=== PATIENT | male | born 1980 | race Caucasian/White ===

== ENCOUNTER 2016-08-28 09:38 | Emergency (ER) | payer OTHER ==
[2016-08-28 09:43] VITALS: BP 128/84; PULSE 83; TEMP 97.7; BMI 30.7
--- NOTE | 2016-08-28 10:32 | PDOC ---
History of Present Illness - General Chief Complaint: Back Pain Stated Complaint: BACK PAIN Time Seen by Provider: 08/28/16 09:50 History Source: Patient, Parent(s) Exam Limitations: No Limitations - History of Present Illness Initial Comments: 08/28/16 10:44 Patient states had onset of pain to his waistline and low back yesterday which is progressively gotten worse. Has no known trauma, recent injury, any exercise changes. Is currently unemployed and has not performed any heavy lifting. Denies fever, denies nausea vomiting diarrhea or constipation. States had back pain episode approximate 4 months ago but that was related to pancreatitis and this pain is not similar to that pain. Denies any changes with urine, no bleeding or history of kidney stone. Has used ibuprofen at home with minimal resolved. 08/28/16 10:45 Occurred: reports: yesterday Severity: reports: moderate Pain Location: reports: back Method of Injury: Yes: unknown Modifying Factors: improves with: None Loss of Consciousness: no loss of consciousness Associated Symptoms (Fall): denies symptoms Past History - Travel Traveled outside of the country in the last 30 days: No Close contact w/someone who was outside of country & ill: No - Past Medical History Allergies/Adverse Reactions: Allergies Allergy/AdvReac Type Severity Reaction Status Date / Time Penicillins Allergy Unknown Itching Verified 08/28/16 09:40 Home Medications: Ambulatory Orders Cyclobenzaprine HCl [Flexeril 10 mg] 10 mg PO BID PRN #14 tablet 08/28/16 Naproxen [Naprosyn -] 500 mg PO TID #25 tablet 08/28/16 Anemia: No Asthma: No Cancer: No Cardiac Disorders: No CVA: No COPD: No CHF: No Dementia: No Diabetes: No GI Disorders: No Disorders: No HTN: No Hypercholesterolemia: No Liver Disease: No Suicide Attempt (Hx): No Seizures: No Thyroid Disease: No - Surgical History Abdominal Surgery: No Appendectomy: No Cardiac Surgery: No Cholecystectomy: Yes Lung Surgery: No Neurologic Surgery: No Orthopedic Surgery: Yes (RIGHT SHOULDER SX 2010,) - Psycho/Social/Smoking Cessation Hx Anxiety: No Suicidal Ideation: No Smoking History: Never smoked Have you smoked in the past 12 months: No Information on smoking cessation initiated: No Hx Alcohol Use: No Drug/Substance Use Hx: No Substance Use Type: None Hx Substance Use Treatment: No Review of Systems - Review of Systems Able to Perform ROS?: Yes Is the patient limited Pashto proficient: Yes Constitutional: Yes: Symptoms Reported, See HPI, Malaise HEENTM: Yes: See HPI. No: Symptoms Reported Respiratory: Yes: See HPI. No: Symptoms reported ABD/GI: No: Symptoms Reported Musculoskeletal: Yes: Symptoms Reported, See HPI, Back Pain, Muscle Pain Integumentary: Yes: Symptoms Reported, See HPI Neurological: Yes: See HPI. No: Symptoms reported, Headache, Paresthesia All Other Systems: Reviewed and Negative *Physical Exam - Vital Signs Last Vital Signs Temp Pulse Resp BP Pulse Ox 97.7 F 83 18 128/84 100 08/28/16 09:41 08/28/16 09:41 08/28/16 09:41 08/28/16 09:41 08/28/16 09:41 - Physical Exam General Appearance: Yes: Nourished, Appropriately Dressed, Apparent Distress HEENT: positive: TONY, Normal ENT Inspection, TMs Normal, Pharynx Normal Neck: positive: Supple. negative: Tender, Lymphadenopathy (R), Lymphadenopathy (L) Respiratory/Chest: positive: Lungs Clear, Normal Breath Sounds Musculoskeletal: positive: Normal Inspection, Muscle Spasm (palpable spasm and tenderness along the paravertebral spinous muscles at waist and lumbar spine. No true vertebral tenderness crepitus or step-offs. Range of motion is limited secondary to pain with flexion at waist, no radiating pain.). 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 Encouraged follow-up with orthopedist for further evaluation and possible therapy *DC/Admit/Observation/Transfer Diagnosis at time of Disposition: Low back strain Qualifiers: Encounter type: initial encounter Qualified Code(s): S39.012A - Strain of muscle, fascia and tendon of lower back, initial encounter - Discharge Dispostion Disposition: HOME Condition at time of disposition: Stable Admit: No - Referrals Referrals: Rebecca Morin MD [Primary Care Provider] - Venkata Hernandez MD [Staff Physician] - - Patient Instructions Printed Discharge Instructions: DI for Back Strain or Sprain Additional Instructions: Rest, no heavy lifting or exercise until pain is resolved Hot soaks to neck and low back as often as possible/hot showers or Jacuzzis No massage or therapy until spasm is gone Continue i Naprosyn 500 mg every 8 hours for the next 3 days then as needed for pain and swelling Cyclobenzaprine 1-10mg every 8 hours as needed for spasm If not significant improvement within 24 hours with medication and rest regime, followup with private physician for change in medications and /or therapy.
[2016-08-28] MEDS ORDERED: CYCLOBENZAPRINE HCL 10 MG TABLET (FP) PO ONE (10:43)
[2016-08-28] MEDS ORDERED: KETOROLAC TROMETHAMINE 60 MG/2 ML VIAL IM ONE (10:43)
[2016-08-28] MEDS ORDERED: CYCLOBENZAPRINE HCL 10 MG TABLET (FP) ONE (10:45)
[2016-08-28] MEDS ORDERED: KETOROLAC TROMETHAMINE 60 MG/2 ML VIAL ONE (10:45)
[2016-08-28] MEDS ORDERED: OXYCODONE/APAP 5/325MG COMBO TABLET ONE (11:16)
[2016-08-28 11:31] LABS: URINE APPEARANCE CLEAR; URINE BILIRUBIN NEGATIVE (NEGATIVE); URINE COLOR STRAW; URINE GLUCOSE (UA) NEGATIVE (NEGATIVE); URINE KETONE NEGATIVE (NEGATIVE); URINE LEUK ESTERASE NEGATIVE (NEGATIVE); URINE NITRITE NEGATIVE (NEGATIVE); URINE PROTEIN NEGATIVE (NEGATIVE); URINE UROBILINOGEN NEGATIVE E.U./dl (0.2-1.0)
[2016-08-28 11:45] LABS: URINE BLOOD 1+ (NEGATIVE)
[2016-08-28 12:15] LABS: URINE MUCUS RARE; URINE RBC <1 /hpf (0-3)
== END 2016-08-28 11:49 | disposition home or self-care (01) ==
LOC: JERFT 09:38
PROC: 3E0333Z Introduction of Anti-inflammatory into Peripheral Vein, Percutaneous Approach (ICD-10-PCS; principal; 2016-08-28)
DX: S39.012A Strain of muscle, fascia and tendon of lower back, initial encounter (principal); M62.830 Muscle spasm of back
CPT/HCPCS: 81003; 81015; 96372; 99281-25

== ENCOUNTER 2016-10-09 16:20 | Emergency (ER) | payer OTHER ==
[2016-10-09 16:26] VITALS: BMI 29.9
--- NOTE | 2016-10-09 17:21 | PDOC ---
History of Present Illness - History of Present Illness Initial Comments: 10/09/16 18:15 Patient is a 36 year old male with no significant medical hx who is presenting to the ED with bruising of unknown origin from this morning. The patient states he woke up this morning with scattered bruising to his left thigh, right thigh, and left buttock. He does not know what caused the bruising and decided to come to the ED for further evaluation. The patient denies any recent heavy lifting, physical altercations, work related injuries, trauma, or falls. Patient is not on any chronic medications. Patient denies any other symptoms such as abdominal pain, nausea, vomiting, high fevers, difficulty swallowing, shortness of breath, or chest pain. Allergies: Penicillin PMD: Rebecca Morin MD Surgical Hx: cholecystectomy, shoulder sx <Yanira Dias - Last Filed: 10/09/16 18:15> <Ilda Rudolph - Last Filed: 10/10/16 02:46> - General Chief Complaint: Pain Stated Complaint: bruising Time Seen by Provider: 10/09/16 17:18 Past History <Yanira Dias - Last Filed: 10/09/16 18:15> - Past Medical History Anemia: No Asthma: No Cancer: No Cardiac Disorders: No CVA: No COPD: No CHF: No Dementia: No Diabetes: No GI Disorders: No Disorders: No HTN: No Hypercholesterolemia: No Liver Disease: No Suicide Attempt (Hx): No Seizures: No Thyroid Disease: No - Surgical History Abdominal Surgery: No Appendectomy: No Cardiac Surgery: No Cholecystectomy: Yes Lung Surgery: No Neurologic Surgery: No Orthopedic Surgery: Yes (RIGHT SHOULDER SX 2010,) - Psycho/Social/Smoking Cessation Hx Anxiety: No Suicidal Ideation: No Smoking History: Never smoked Have you smoked in the past 12 months: No Information on smoking cessation initiated: No Hx Alcohol Use: No Drug/Substance Use Hx: No Substance Use Type: None Hx Substance Use Treatment: No <Ilda Rudolph - Last Filed: 10/10/16 02:46> - Past Medical History Allergies/Adverse Reactions: Allergies Allergy/AdvReac Type Severity Reaction Status Date / Time Penicillins Allergy Unknown Itching Verified 10/09/16 16:24 Home Medications: Ambulatory Orders NK [No Known Home Medication] 10/09/16 Review of Systems - Review of Systems Comments:: 10/09/16 18:15 CONSTITUTIONAL: Absent: fever, chills, diaphoresis, generalized weakness, malaise, loss of appetite HEENT: Absent: rhinorrhea, nasal congestion, throat pain, throat swelling, difficulty swallowing, mouth swelling, ear pain, eye pain, visual changes CARDIOVASCULAR: Absent: chest pain, syncope, palpitations, irregular heart rate, lightheadedness , peripheral edema RESPIRATORY: Absent: cough, shortness of breath, dyspnea with exertion, orthopnea, wheezing, stridor, hemoptysis GASTROINTESTINAL: Absent: abdominal pain, abdominal distension, nausea, vomiting, diarrhea, constipation, melena, hematochezia GENITOURINARY: Absent: dysuria, frequency, urgency, hesitancy, hematuria, flank pain, genital pain MUSCULOSKELETAL: Absent: myalgia, arthralgia, joint swelling SKIN: Present: bruising Absent: rash, itching, pallor HEMATOLOGIC/IMMUNOLOGIC: Absent: easy bleeding, easy bruising, lymphadenopathy, frequent infections ENDOCRINE: Absent: unexplained weight gain, unexplained weight loss, heat intolerance, cold intolerance NEUROLOGIC: Absent: headache, focal weakness or paresthesia, dizziness, unsteady gait, seizure, mental status changes, bladder or bowel incontinence. PSYCHIATRIC: Absent: anxiety, depression, suicidal or homicidal ideation, hallucinations <Yanira Dias - Last Filed: 10/09/16 18:15> *Physical Exam - Vital Signs Last Vital Signs Temp Pulse Resp BP Pulse Ox 97.8 F 81 18 120/80 99 10/09/16 16:24 10/09/16 16:24 10/09/16 16:24 10/09/16 16:24 10/09/16 16:24 - Physical Exam Comments: 10/09/16 18:15 GENERAL: Well developed, well nourished. Awake and alert. No acute distress. HEENT: Normocephalic, atraumatic. PERRLA, EOMI. No conjunctival pallor. Sclera are non- icteric. Moist mucous membranes. Oropharynx is clear. NECK: Supple. Full ROM. No JVD. Carotid pulses 2+ and symmetric, without bruits. No thyromegaly. No lymphadenopathy. CARDIOVASCULAR: Regular rate and rhythm. No murmurs, rubs, or gallops. Distal pulses are 2+ and symmetric. PULMONARY: No evidence of respiratory distress. Lungs clear to auscultation bilaterally. No wheezing, rales or rhonchi. ABDOMINAL: Soft. Non-tender. Non-distended. No rebound or guarding. No organomegaly. Normoactive bowel sounds. MUSCULOSKELETAL: Normal range of motion at all joints. No bony deformities or tenderness. No CVA tenderness. EXTREMITIES: No cyanosis. No clubbing. No edema. No calf tenderness. SKIN: Bruising to the left buttock 6cm x 4cm, scattered bruising to the left upper thigh above the left knee, right thigh scattered bruising. No petechiae. Warm and dry. Normal capillary refill. No rashes. No jaundice. NEUROLOGICAL: Alert, awake, appropriate. Cranial nerves 2-12 intact. Normal speech. Gait is normal without ataxia. PSYCHIATRIC: Cooperative. Good eye contact. Appropriate mood and affect. <Yanira Dias - Last Filed: 10/09/16 18:15> - Vital Signs Last Vital Signs Temp Pulse Resp BP Pulse Ox 97.8 F 81 18 120/80 99 10/09/16 16:24 10/09/16 16:24 10/09/16 16:24 10/09/16 16:24 10/09/16 16:24 <Ilda Rudolph - Last Filed: 10/10/16 02:46> ED Treatment Course - LABORATORY CBC & Chemistry Diagram: 10/09/16 18:23 10/09/16 18:23 <Ilda Rudolph - Last Filed: 10/10/16 02:46> Medical Decision Making - Medical Decision Making 10/09/16 19:12 36-year-old male presents because of scattered bruising unrelated to any trauma. Denies any significant past medical history On exam, he has some scattered bruising noted abrasions to his left buttocks 4 x 6 cm bruising, some bruising to his upper thighs. Review of systems he DENIES any shortness of breath, exertional dyspnea, chest pain, nausea, vomiting, fever or chills Past medical history rotator cuff tears 2 surgeries on his right shoulder Past surgical history right shoulder surgery Social history denies alcohol or tobacco use, currently on disability for his right shoulder, currently not working. 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 <Yanira Dias - Last Filed: 10/09/16 18:15> <Ilda Rudolph - Last Filed: 10/10/16 02:46> Diagnosis at time of Disposition: Bruises easily - Discharge Dispostion Disposition: HOME Condition at time of disposition: Stable - Referrals Referrals: Rebecca Morin MD [Primary Care Provider] - - Patient Instructions Additional Instructions: Please followup with Dr Morin id your symptoms persist
[2016-10-09 19:11] LABS: BASOPHIL 0.8 % (0-2.0); EOSINOPHIL 4.2 % (0-4.5); MCH 28.8 pg (25.7-33.7); MCHC 33.2 g/dl (32.0-35.9); MEAN CELL VOLUME 86.7 fl (80-96); MEAN PLT VOLUME 8.6 fl (7.5-11.1); NEUTROPHILS 47.1 % (42.8-82.8); PLATELET COUNT 201 K/MM3 (134-434); RDW 14.3 % (11.9-15.9)
[2016-10-09 19:16] LABS: ANION GAP 10 (8-16); BILIRUBIN,TOTAL 0.3 mg/dL (0.2-1.0); CALCIUM 9.1 mg/dL (8.5-10.1); CO2 26 mmol/L (21-32); COCKROFT - GAULT 176.08; CREATININE 0.8 mg/dL (0.7-1.3); GLUCOSE,RANDOM 84 mg/dL (74-106); SGOT/AST 30 U/L (15-37); SGPT/ALT 34 U/L (12-78); TOT PROT 7.4 g/dl (6.4-8.2)
[2016-10-09 19:17] LABS: ALK PHOS 59 U/L (45-117)
[2016-10-09 19:28] LABS: INR 0.92 (0.82-1.09); PROTHROMBIN TIME (PATIENT) 10.1 SEC (9.98-11.88)
[2016-10-09 20:00] VITALS: BP 118/74; PULSE 84; TEMP 97.1
== END 2016-10-09 20:00 | disposition home or self-care (01) ==
LOC: JER 16:20
DX: S70.12XA Contusion of left thigh, initial encounter (principal); S70.11XA Contusion of right thigh, initial encounter; S30.0XXA Contusion of lower back and pelvis, initial encounter; X58.XXXA Exposure to other specified factors, initial encounter; Y93.9 Activity, unspecified
CPT/HCPCS: 36415; 80053; 85025; 85044; 85610; 86850; 86900; 86901; 99282-25

== ENCOUNTER 2017-01-17 19:23 | Observation (INO) | payer OTHER ==
--- NOTE | 2017-01-17 20:02 | PDOC ---
History of Present Illness - General History Source: Patient <Simon Perez - Last Filed: 01/18/17 02:36> - General History Source: Patient Exam Limitations: No Limitations - History of Present Illness Initial Comments: 01/17/17 20:09 The patient is a 37 year old male with no significant past medical history who presents to the ED with right lower quadrant pain since yesterday. The patient reports a gradual onset of intermittent right lower quadrant pain yesterday afternoon. He also reports diaphoresis and chills last night but denies fever. Denies recent sick contacts. Denies recent travel. Denies dysuria or changes in urinary output. Denies nausea, vomiting, or diarrhea. Denies cough or shortness of breath. Denies chest pain or palpitations. Denies any other symptoms. Surgical hx: Gallbladder removal. Allergies: Penicillin <Chris Petersen - Last Filed: 01/18/17 03:35> - General Chief Complaint: Pain, Acute Stated Complaint: ABDOMINAL PAIN Time Seen by Provider: 01/17/17 20:01 Past History - Past Medical History Anemia: No Asthma: No Cancer: No Cardiac Disorders: No CVA: No COPD: No CHF: No Dementia: No Diabetes: No GI Disorders: No Disorders: No HTN: No Hypercholesterolemia: No Liver Disease: No Suicide Attempt (Hx): No Seizures: No Thyroid Disease: No - Surgical History Abdominal Surgery: No Appendectomy: No Cardiac Surgery: No Cholecystectomy: Yes Lung Surgery: No Neurologic Surgery: No Orthopedic Surgery: Yes (RIGHT SHOULDER SX 2011,) - Psycho/Social/Smoking Cessation Hx Anxiety: No Suicidal Ideation: No Smoking History: Never smoked Have you smoked in the past 12 months: No Information on smoking cessation initiated: No Hx Alcohol Use: No Drug/Substance Use Hx: No Substance Use Type: None Hx Substance Use Treatment: No <Simon Perez - Last Filed: 01/18/17 02:36> <Chris Petersen - Last Filed: 01/18/17 03:35> - Past Medical History Allergies/Adverse Reactions: Allergies Allergy/AdvReac Type Severity Reaction Status Date / Time Penicillins Allergy Unknown Itching Verified 01/17/17 19:46 Home Medications: Ambulatory Orders NK [No Known Home Medication] 10/09/16 Review of Systems - Review of Systems Able to Perform ROS?: Yes Comments:: 01/17/17 20:09 CONSTITUTIONAL: + diaphoresis, chills No reported:, Generalized Weakness, Malaise, Loss of Appetite HEENT: No reported: Rhinorrhea, Nasal Congestion, Throat Pain, Throat Swelling, Difficulty Swallowing, Mouth Swelling, Ear Pain, Eye Pain, Visual Changes CARDIOVASCULAR: No reported: Chest Pain, Syncope, Palpitations, Irregular Heart Rate, Lightheadedness, Peripheral Edema RESPIRATORY: No reported: Cough, Shortness of Breath, SOB with Exertion, Orthopnea, Wheezing , Stridor, Hemoptysis GASTROINTESTINAL: + abdominal pain No reported: Abdominal Distension, Nausea, Vomiting, Diarrhea, Constipation, Melena, Hematochezia GENITOURINARY: No reported: Dysuria, Frequency, Urgency, Hesitancy, Flank Pain, Genital Pain MUSCULOSKELETAL: No reported: Myalgia, Arthralgia, Joint Swelling, Back pain, Neck Pain SKIN: No reported: Rash, Itching, Pallor HEMEATOLOGIC/IMMUNOLOGIC: No reported: Easy Bleeding, Easy Bruising, Lymphadenopathy, Frequent infections ENDOCRINE: No reported: Unexplained Weight Gain, Unexplained Weight Loss, Heat Intolerance , Cold Intolerance NEUROLOGIC: No reported: Headache, Focal Weakness, Paresthesias, Vertigo, Lightheadedness, Unsteady Gait, Seizure, Mental Status Changes, Incontinence PSYCHIATRIC: No reported: Anxiety, Depression All Other Systems: Reviewed and Negative <Chris Petersen - Last Filed: 01/18/17 03:35> *Physical Exam - Vital Signs Last Vital Signs Temp Pulse Resp BP Pulse Ox 97.6 F 69 20 108/69 97 01/17/17 19:46 01/17/17 19:46 01/17/17 19:46 01/17/17 19:46 01/17/17 19:46 <Simon Perez - Last Filed: 01/18/17 02:36> - Vital Signs Last Vital Signs Temp Pulse Resp BP Pulse Ox 97.6 F 69 20 108/69 97 01/17/17 19:46 01/17/17 19:46 01/17/17 19:46 01/17/17 19:46 01/17/17 19:46 - Physical Exam Comments: 01/17/17 20:09 GENERAL: Well developed, well nourished. Awake and alert. No acute distress. HEENT: Normocephalic, atraumatic. PERRLA, EOMI. No conjunctival pallor. Sclera are non- icteric. Moist mucous membranes. Oropharynx is clear. NECK: Supple. Full ROM. No JVD. Carotid pulses 2+ and symmetric, without bruits. No thyromegaly. No lymphadenopathy. CARDIOVASCULAR: Regular rate and rhythm. No murmurs, rubs, or gallops. Distal pulses are 2+ and symmetric. PULMONARY: No evidence of respiratory distress. Lungs clear to auscultation bilaterally. No wheezing, rales or rhonchi. ABDOMINAL: Soft. Non-tender. Non-distended. No rebound or guarding. No organomegaly. Normoactive bowel sounds. MUSCULOSKELETAL Normal range of motion at all joints. No bony deformities or tenderness. No CVA tenderness. EXTREMITIES: No cyanosis. No clubbing. No edema. No calf tenderness. SKIN: Warm and dry. Normal capillary refill. No rashes. No jaundice. NEUROLOGICAL: Alert, awake, appropriate. Cranial nerves 2-12 intact. No deficits to light touch and temperature in face, upper extremities and lower extremities. No motor deficits in the in face, upper extremities and lower extremities. Normoreflexic in the upper and lower extremities. Normal speech. Toes are down- going bilaterally. Gait is normal without ataxia. PSYCHIATRIC: Cooperative. Good eye contact. Appropriate mood and affect. <Chris Petersen - Last Filed: 01/18/17 03:35> Heart Score/ECG Review #1 01/18/17 03:34 Vent. rate 52 bpm CO interval 168 ms QRS duration 94 ms Sinus bradycardia Possible left atrial enlargement Incomplete right bundle branch block <Chris Petersen - Last Filed: 01/18/17 03:35> ED Treatment Course - LABORATORY CBC & Chemistry Diagram: 01/17/17 20:40 01/17/17 20:40 <Simon Perez - Last Filed: 01/18/17 02:36> - LABORATORY CBC & Chemistry Diagram: 01/17/17 20:40 01/17/17 20:40 <Chris Petersen - Last Filed: 01/18/17 03:35> Medical Decision Making - Medical Decision Making 01/18/17 02:34 Dr. Perez: The scribe's documentation has been prepared under my direction and personally reviewed by me in its entirery. I confirm that the note above accurately reflects all work, treatment, procedures, and medical decision making performed by me. <Simon Perez - Last Filed: 01/18/17 02:36> *DC/Admit/Observation/Transfer - Discharge Dispostion Admit: Yes <Simon Perez - Last Filed: 01/18/17 02:36> - Attestations Scribe Attestion: 01/17/17 20:09 ] Documentation prepared by Chris Petersen, acting as medical detailist for Simon Perez MD <Chris Petersen - Last Filed: 01/18/17 03:35> Diagnosis at time of Disposition: Abdominal pain Pancreatitis Qualifiers: Chronicity: chronic Pancreatitis type: other Qualified Code(s): K86.1 - Other chronic pancreatitis - Discharge Dispostion Condition at time of disposition: Stable
[2017-01-17] MEDS ORDERED: ONDANSETRON 4 MG/2 ML VIAL IVPUSH STA (20:07)
[2017-01-17] MEDS ORDERED: SODIUM CHLORIDE 1,000 ML IV STA (20:07)
[2017-01-17] MEDS ORDERED: KETOROLAC TROMETHAMINE 30 MG/1 ML VIAL IVPUSH ONE (20:07)
[2017-01-17] MEDS ORDERED: ONDANSETRON 4 MG/2 ML VIAL ONE (20:30)
[2017-01-17] MEDS ORDERED: KETOROLAC TROMETHAMINE 30 MG/1 ML VIAL ONE (20:30)
[2017-01-17 20:58] LABS: BASOPHIL 0.6 % (0-2.0); EOSINOPHIL 1.8 % (0-4.5); MCH 29.5 pg (25.7-33.7); MCHC 33.8 g/dl (32.0-35.9); MEAN CELL VOLUME 87.3 fl (80-96); NEUTROPHILS 69.2 % (42.8-82.8); PLATELET COUNT 203 K/MM3 (134-434); RDW 14.6 % (11.9-15.9); WHITE BLOOD COUNT 10.9 K/mm3 (4.0-10.0)
[2017-01-17 21:31] LABS: ALBUMIN 3.8 g/dl (3.4-5.0); ALK PHOS 60 U/L (45-117); ANION GAP 7 (8-16); BILIRUBIN,TOTAL 0.5 mg/dL (0.2-1.0); CO2 28 mmol/L (21-32); CREATININE 0.9 mg/dL (0.7-1.3); GLUCOSE,RANDOM 96 mg/dL (74-106); SGOT/AST 31 U/L (15-37); SGPT/ALT 39 U/L (12-78); TOT PROT 7.1 g/dl (6.4-8.2)
[2017-01-17 22:17] LABS: URINE APPEARANCE SL CLOUDY; URINE BILIRUBIN NEGATIVE (NEGATIVE); URINE BLOOD NEGATIVE (NEGATIVE); URINE COLOR LT. YELLOW; URINE GLUCOSE (UA) NEGATIVE (NEGATIVE); URINE KETONE NEGATIVE (NEGATIVE); URINE LEUK ESTERASE NEGATIVE (NEGATIVE); URINE NITRITE NEGATIVE (NEGATIVE); URINE UROBILINOGEN 0.2 mg/dL (0.2-1.0)
[2017-01-17 22:18] LABS: URINE PROTEIN 1+ (NEGATIVE)
[2017-01-17 22:33] LABS: URINE MUCUS FEW; URINE RBC 2 /hpf (0-3); URINE WBC 2 /hpf (3-5)
[2017-01-18] MEDS ORDERED: morphine CARPU-JECT 2 MG/1 ML DISP.SYRIN IVPUSH PRN ×2 (02:49→03:29)
[2017-01-18] MEDS ORDERED: LACTATED RINGERS SOLUTION 1,000 ML IV SCH ×4 (03:00→05:30)
--- NOTE | 2017-01-18 03:03 | PN ---
Teaching Attending Note Name of Resident: Clint Bansal ATTENDING PHYSICIAN STATEMENT I saw and evaluated the patient. I reviewed the resident's note and discussed the case with the resident. I agree with the resident's findings and plan as documented. SUBJECTIVE: 37 yo admitted to general medical floor with acute pancreatitis. OBJECTIVE: - Vital Signs Temp: 97.6F BP: 108/69 HR: 60-70s RR: 17-20 spO2: 97% RA - Physical Examination General: Alert, mild distress HEENT: No oropharyngeal lesions noted Neck: No JVD or thyromegaly CV: RRR, S1 and S2 Pulm: CTA anteriorly Abd: TTP epigastric and periumbilical, Nondistended Ext: Nonedematous - Imaging CXR reviewed CT A/P reviewed - Labs Renal Function and Electrolytes unremarkable CBC reveals mild leukocytosis Amylase and Lipase elevated at 239 and 921 respectively ASSESSMENT AND PLAN: Acute Pancreatitis - Mild IVF hydration w/ LR , NPO until nausea improves , Pain management Check EtOH level , F/U CT a/p results IV Pepcid Mild Leukocytosis Repeat CBC in AM to monitor trend DISPOSITION Anticipate discharge in 24-48h.
[2017-01-18] MEDS ORDERED: LACTATED RINGERS SOLUTION 1,000 ML IV STA (03:21)
--- NOTE | 2017-01-18 04:30 | HP ---
CHIEF COMPLAINT: abdominal pain PCP: none, just switched insurance HISTORY OF PRESENT ILLNESS: 37yo M with no significant PMH presents c/o abdominal pain. Pt was watching TV around 6pm when pain started, and he began sweating at that time, prompting him to come to the ER. Pain originates in RLQ and radiates up to RUQ, and is throbbing and constant in nature. Rated 8/10. Pt reports this pain came on Sunday briefly, and then went away. Pt was admitted in 03/2016 for similar symptoms. Pt denies chest pain, SOB, sick contacts. ER course was notable for: (1) lipase 921, amylase 239 (2) zofran, toradol (3) CXR, A/P CT both pending Recent Travel: none PAST MEDICAL HISTORY: none PAST SURGICAL HISTORY: cholecystectomy 2 yrs ago Right shoulder surgery x 2, 6 yrs ago Social History: Smoking: denies Alcohol: denies Drugs: denies Allergies Penicillins Allergy (Unknown, Verified 01/17/17 19:46) Itching HOME MEDICATIONS: Home Medications Medication Instructions Recorded NK [No Known Home Medication] 10/09/16 REVIEW OF SYSTEMS CONSTITUTIONAL: Absent: fever, generalized weakness, malaise, loss of appetite, weight change HEENT: Absent: throat pain, ear pain, eye pain, visual changes CARDIOVASCULAR: Absent: chest pain, palpitations, irregular heart rate, lightheadedness, peripheral edema RESPIRATORY: Absent: cough, shortness of breath, dyspnea with exertion, orthopnea, wheezing, stridor GASTROINTESTINAL: Present: abdominal pain Absent: abdominal distension, vomiting, diarrhea, constipation, melena, hematochezia GENITOURINARY: Absent: dysuria, flank pain MUSCULOSKELETAL: Absent: myalgia, joint swelling, back pain, neck pain SKIN: Absent: rash, itching, pallor HEMATOLOGIC/IMMUNOLOGIC: Absent: easy bleeding, easy bruising, lymphadenopathy NEUROLOGIC: Absent: headache, focal weakness or paresthesias, dizziness, unsteady gait, seizure, mental status changes PHYSICAL EXAMINATION Last Vital Signs Temp Pulse Resp BP Pulse Ox 97.6 F 60 17 122/71 97 01/17/17 19:46 01/17/17 23:49 01/17/17 23:49 01/17/17 23:49 01/17/17 23:49 GENERAL: Awake, alert, and fully oriented, in no acute distress. HEAD: Normal with no signs of trauma. EYES: Pupils equal, round and reactive to light, extraocular movements intact, sclera anicteric, conjunctiva clear. No lid lag. EARS, NOSE, THROAT: Moist mucous membranes. NECK: Trachea midline. No JVD. LUNGS: Breath sounds equal, clear to auscultation bilaterally. No wheezes, and no crackles. No accessory muscle use. HEART: Regular rate and rhythm, normal S1 and S2 without murmur, rub or gallop. ABDOMEN: Soft, tender to palpation of RUQ/RLQ, not distended, normoactive bowel sounds, no guarding, no rebound, no masses. MUSCULOSKELETAL: No CVA tenderness. LOWER EXTREMITIES: No peripheral edema. NEUROLOGICAL: Normal speech. PSYCHIATRIC: Cooperative. Good eye contact. Appropriate mood and affect. SKIN: Warm, dry, normal turgor, no rashes or lesions noted. Laboratory Last Values WBC 10.9 K/mm3 (4.0-10.0) H 01/17/17 20:40 RBC 4.58 M/mm3 (4.00-5.60) 01/17/17 20:40 Hgb 13.5 GM/dL (11.7-16.9) 01/17/17 20:40 Hct 39.9 % (35.4-49) 01/17/17 20:40 MCV 87.3 fl (80-96) 01/17/17 20:40 MCH 29.5 pg (25.7-33.7) 01/17/17 20:40 MCHC 33.8 g/dl (32.0-35.9) 01/17/17 20:40 RDW 14.6 % (11.9-15.9) 01/17/17 20:40 Plt Count 203 K/MM3 (134-434) 01/17/17 20:40 MPV 8.0 fl (7.5-11.1) 01/17/17 20:40 Neutrophils % 69.2 % (42.8-82.8) D 01/17/17 20:40 Lymphocytes % 21.4 % (8-40) D 01/17/17 20:40 Monocytes % 7.0 % (3.8-10.2) 01/17/17 20:40 Eosinophils % 1.8 % (0-4.5) 01/17/17 20:40 Basophils % 0.6 % (0-2.0) 01/17/17 20:40 Sodium 139 mmol/L (136-145) 01/17/17 20:40 Potassium 4.0 mmol/L (3.5-5.1) 01/17/17 20:40 Chloride 104 mmol/L (98-107) 01/17/17 20:40 Carbon Dioxide 28 mmol/L (21-32) 01/17/17 20:40 Anion Gap 7 (8-16) L 01/17/17 20:40 BUN 11 mg/dL (7-18) 01/17/17 20:40 Creatinine 0.9 mg/dL (0.7-1.3) 01/17/17 20:40 Creat Clearance w eGFR > 60 (>60) 01/17/17 20:40 Random Glucose 96 mg/dL (74-106) 01/17/17 20:40 Calcium 9.0 mg/dL (8.5-10.1) 01/17/17 20:40 Magnesium 2.0 mg/dL (1.8-2.4) 01/17/17 20:40 Total Bilirubin 0.5 mg/dL (0.2-1.0) D 01/17/17 20:40 AST 31 U/L (15-37) 01/17/17 20:40 ALT 39 U/L (12-78) 01/17/17 20:40 Alkaline Phosphatase 60 U/L (45-117) 01/17/17 20:40 Total Protein 7.1 g/dl (6.4-8.2) 01/17/17 20:40 Albumin 3.8 g/dl (3.4-5.0) 01/17/17 20:40 Total Amylase 239 U/L (25-115) H 01/17/17 20:40 Lipase 921 U/L (73-393) H 01/17/17 20:40 Urine Color Lt. yellow 01/17/17 21:00 Urine Appearance Sl cloudy 01/17/17 21:00 Urine pH 6.0 (5.0-8.0) 01/17/17 21:00 Urine Protein 1+ (NEGATIVE) H 01/17/17 21:00 Urine Glucose (UA) Negative (NEGATIVE) 01/17/17 21:00 Urine Ketones Negative (NEGATIVE) 01/17/17 21:00 Urine Blood Negative (NEGATIVE) 01/17/17 21:00 Urine Nitrite Negative (NEGATIVE) 01/17/17 21:00 Urine Bilirubin Negative (NEGATIVE) 01/17/17 21:00 Urine Urobilinogen 0.2 mg/dL (0.2-1.0) 01/17/17 21:00 Ur Leukocyte Esterase Negative (NEGATIVE) 01/17/17 21:00 Urine RBC 2 /hpf (0-3) 01/17/17 21:00 Urine WBC 2 /hpf (3-5) 01/17/17 21:00 Ur Epithelial Cells Rare /hpf (FEW) 01/17/17 21:00 Urine Mucus Few 01/17/17 21:00 IMAGIN01/18/17 CXR official report pending, appears normal negative. 01/18/17 A/P CT report pending ASSESSMENT/PLAN: 37yo M with no significant PMH, S/P cholecystectomy 2 yrs ago, presents c/o abdominal pain with elevated lipase/amylase, admitted to Observation for acute mild pancreatitis. 1) abdominal pain - likely 2/2 pancreatitis vs gastroenteritis - Morphine 2mg IV q2hr prn for pain - LR 1 L bolus x 2, followed by LR 150 ml/hr - npo - f/u A/P CT - f/u lipid panel, alcohol level 2) mild leukocytosis - likely reactive - cont. to monitor 3) FEN - Fluids: LR @ 150 ml/hr - Electrolytes: wnl - Nutrition: npo 4) prophylaxis - duane SCDs for DVT prophylaxis Visit type - Emergency Visit Emergency Visit: Yes ED Registration Date: 01/18/17 Care time: The patient presented to the Emergency Department on the above date and was hospitalized for further evaluation of their emergent condition. - New Patient This patient is new to me today: Yes Date on this admission: 01/18/17 - Critical Care Critical Care patient: No
[2017-01-18 04:31] VITALS: BMI 30.9
[2017-01-18 08:09] LABS: MCHC 34.1 g/dl (32.0-35.9); MEAN CELL VOLUME 88.1 fl (80-96); MEAN PLT VOLUME 8.4 fl (7.5-11.1); PLATELET COUNT 190 K/MM3 (134-434); RDW 14.4 % (11.9-15.9); WHITE BLOOD COUNT 9.2 K/mm3 (4.0-10.0)
[2017-01-18 09:43] LABS: PHOSPHOROUS 2.6 mg/dL (2.5-4.9)
[2017-01-18] MEDS ORDERED: PANTOPRAZOLE SODIUM 40 MG in SODIUM CHLORIDE 100 ML IVPB SCH (10:45)
--- NOTE | 2017-01-18 10:56 | CONSULT ---
Consult Consult Specialty:: GI Referred by:: Dorothy Reason for Consultation:: pancreatitis - History of Present Illness Chief Complaint: abdominal pain History of Present Illness: 37yo man with PMH of cholecystitis s/p cholecystectomy (2014) and pancreatitis who presents with acute onset of RLQ pain radiating to RUQ/epigastrium 2 days ago. He was at his [employer], watching TV, when he had acute, sharp pain originating in the RLQ that radiated to his epigastrium. Each episodes lasts a few minutes ranging in severity from 2 to 8/10. He denies any nausea, vomiting, fever or chills, but does endorse feeling "sweaty". The abdominal pain is not related to eating or bowel movements. Denies any dysuria, hematuria, frequency or urgency. He moves his bowels regularly twice per day. He denies any current melena, pale stool or hematochezia. However, he has had bloody stool in the past in which he sees blood in the toilet and on tissue paper. He estimates that the bloody stool occurs every 3-4 weeks for the past 2 years (since his cholecystectomy). These episodes are painless and spontaneously resolves. He has never had a colonoscopy. Denies any joint pain, rashes, change in appetite or weight. No recent travel or sick contacts - History Source History Provided By: Patient, Medical Record Limitations to Obtaining History: No Limitations - Past Medical History Gastrointestinal: Yes: Pancreatitis Hepatobiliary: Yes: Cholelithiasis, Cholecystitis Musculoskeletal: Yes: Other (R shoulder pain) - Past Surgical History Past Surgical History: Yes: Cholecystectomy Additional Surgical History: Orthopedic surgery of R shoulder for work-related injury - approx 6y ago per pt - Alcohol/Substance Use Hx Alcohol Use: No History of Substance Use: reports: None - Smoking History Smoking history: Former smoker Have you smoked in the past 12 months: No If you are a former smoker, when did you quit?: 15 years ago - Social History Usual Living Arrangement: With Spouse (and 3 children; no pets) ADL: Independent 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, 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 Home Medications - Allergies Allergies/Adverse Reactions: Allergies Allergy/AdvReac Type Severity Reaction Status Date / Time Penicillins Allergy Unknown Itching Verified 01/17/17 19:46 - Home Medications Home Medications: Ambulatory Orders NK [No Known Home Medication] 10/09/16 Home Medications (free text): Per patient: takes Ibruprofen 800mg BID PRN for shoulder pain (approximately 2 days/wk for several years) Family Disease History - Family Disease History Family History: Unremarkable Family Disease History: Diabetes: Father, Heart Disease: Father Other Family History: No family history of cancer, IBD, or pancreatitis Review of Systems - Review of Systems Constitutional: reports: Diaphoresis Eyes: reports: No Symptoms HENT: reports: No Symptoms Neck: reports: No Symptoms Cardiovascular: reports: No Symptoms Respiratory: reports: No Symptoms Gastrointestinal: reports: Abdominal Pain Genitourinary: reports: No Symptoms Musculoskeletal: reports: Joint Pain Physical Exam Vital Signs: Vital Signs Temperature 97.9 F L 01/18/17 13:30 Pulse Rate 57 L 01/18/17 13:30 Respiratory Rate 18 01/18/17 13:30 Blood Pressure 131/69 01/18/17 13:30 O2 Sat by Pulse Oximetry (%) 97 on RA 01/18/17 13:30 Constitutional: Yes: Well Nourished, No Distress, Calm Eyes: No: Sclera Icterus Cardiovascular: Yes: Regular Rate and Rhythm. No: Murmur, Rub Respiratory: Yes: CTA Bilaterally. No: Rales, Rhonchi Gastrointestinal: Yes: Normal Bowel Sounds, Soft, Tenderness (RLQ tenderness to light palpation, RUQ/epigastrium tenderness to deep palpation; RLQ tenderness with R hip extension; LLQ tenderness with L hip extension). No: Distention Renal/: Yes: Other (CVA tenderness R > L) Edema: No Peripheral Pulses WNL: Yes Labs: 01/18/17 06:40 Total Bilirubin 0.5 mg/dL (0.2-1.0) D 01/17/17 20:40 AST 31 U/L (15-37) 01/17/17 20:40 ALT 39 U/L (12-78) 01/17/17 20:40 Alkaline Phosphatase 60 U/L (45-117) 01/17/17 20:40 Albumin 3.8 g/dl (3.4-5.0) 01/17/17 20:40 01/17/17 01/17/17 01/18/17 20:40 20:40 06:40 Phosphorus 2.6 Magnesium 2.0 2.0 Triglycerides 157 Cholesterol 187 Total LDL Cholesterol 125 H HDL Cholesterol 36 L Total Amylase 239 H Lipase 921 H Alcohol, Quantitative < 5.0 Urine Color Lt. yellow 01/17/17 21:00 Urine Appearance Sl cloudy 01/17/17 21:00 Urine pH 6.0 (5.0-8.0) 01/17/17 21:00 Ur Specific [place] >= 1.030 (1.005-1.025) H 01/17/17 21:00 Urine Protein 1+ (NEGATIVE) H 01/17/17 21:00 Urine Glucose (UA) Negative (NEGATIVE) 01/17/17 21:00 Urine Ketones Negative (NEGATIVE) 01/17/17 21:00 Urine Blood Negative (NEGATIVE) 01/17/17 21:00 Urine Nitrite Negative (NEGATIVE) 01/17/17 21:00 Urine Bilirubin Negative (NEGATIVE) 01/17/17 21:00 Ur Leukocyte Esterase Negative (NEGATIVE) 01/17/17 21:00 Urine RBC 2 /hpf (0-3) 01/17/17 21:00 Urine WBC 2 /hpf (3-5) 01/17/17 21:00 Ur Epithelial Cells Rare /hpf (FEW) 01/17/17 21:00 Urine Mucus Few 01/17/17 21:00 Imaging - Results Chest X-ray: Image Reviewed (No acute pathology) Cat Scan: Image Reviewed (No e/o acute appendicitis or diverticulitis. No e/o acute or chronic pancreatitis (pancreas normal in size/texture, no peripancreatic fluid collections or inflammatory changes); Diffuse fatty infiltration of the liver) Assessment/Plan Assessment: 37yo man who presents with acute onset RLQ pain of unclear. Differential diagnosis includes appendicitis, however there is no e/o on CT imaging and patient is afebrile without leukocytosis. Pancreatitis is less likely given location of pain and elevation of lipase does not meet criteria for acute pancreatitis. The h/o of bloody stools and pain originating in RLQ is more suggestive of colitis, but there is no e/o of acute pathology on imaging that is consistent with his physical exam. Plan: -d/c PPI -If no improvement of RLQ pain, consider repeat CT and surgical evaluation -Consider colonoscopy as outpatient d/w Dr. Brandy Chapman MD PGY-1 Visit type - Emergency Visit Emergency Visit: No - New Patient This patient is new to me today: Yes Date on this admission: 01/18/17 - Critical Care Critical Care patient: No
--- NOTE | 2017-01-18 12:07 | CONSULT ---
- Consultation REQUESTING PROVIDER: Rani CONSULT REQUEST: We have been asked to surgically evaluate this patient for ? pamcreatitis ? of ? origin/abdominal pain PCP:Petey Onofre HISTORY OF PRESENT ILLNESS: 37 y/o male presented w/ sudden onst lower abdominal pain yesterday; he came to the ER for evaluation; w/u was done and he was admitted; he had a similar episode 03/03/16 which resolved spontaneously; origin of his pancreatitis was ??; he had a lap marissa 01/28/15. He complains he has " sweats ". PMHx: none PSHx: lap marissa Home Medications Medication Instructions Recorded NK [No Known Home Medication] 10/09/16 Allergies Allergy/AdvReac Type Severity Reaction Status Date / Time Penicillins Allergy Unknown Itching Verified 01/17/17 19:46 PHYSICAL EXAM: GENERAL: Awake, alert, and fully oriented, in no acute distress. HEAD: Normal with no signs of trauma. EYES: anicteric, NECK: Normal ROM, supple without lymphadenopathy, JVD, or masses. ABDOMEN: Soft, minimally tender RLQ/R flank, not distended, , ? voluntary guarding, no rebound, no masses. No organomegaly. MUSCULOSKELETAL: Normal ROM at all joints. No bony deformities or tenderness. No CVA tenderness. UPPER EXTREMITIES: 2+ pulses, warm, well-perfused. No cyanosis. Cap refill <2 seconds. No peripheral edema. LOWER EXTREMITIES: 2+ pulses, warm, well-perfused. No calf tenderness. No peripheral edema. NEUROLOGICAL: Normal speech, gait not observed. PSYCH: Cooperative. Good eye contact. Appropriate mood and affect. SKIN: Warm, dry, normal turgor, no rashes or lesions noted. Vital Signs Temperature 97.5 F L 01/18/17 04:24 Pulse Rate 58 L 01/18/17 04:24 Respiratory Rate 18 01/18/17 04:45 Blood Pressure 129/65 01/18/17 04:24 O2 Sat by Pulse Oximetry (%) 97 01/18/17 04:45 Lab Results WBC 9.2 K/mm3 (4.0-10.0) 01/18/17 06:40 RBC 4.38 M/mm3 (4.00-5.60) 01/18/17 06:40 Hgb 13.2 GM/dL (11.7-16.9) 01/18/17 06:40 Hct 38.6 % (35.4-49) 01/18/17 06:40 MCV 88.1 fl (80-96) 01/18/17 06:40 MCHC 34.1 g/dl (32.0-35.9) 01/18/17 06:40 RDW 14.4 % (11.9-15.9) 01/18/17 06:40 Plt Count 190 K/MM3 (134-434) 01/18/17 06:40 Sodium 139 mmol/L (136-145) 01/17/17 20:40 Potassium 4.0 mmol/L (3.5-5.1) 01/17/17 20:40 Chloride 104 mmol/L (98-107) 01/17/17 20:40 Carbon Dioxide 28 mmol/L (21-32) 01/17/17 20:40 Anion Gap 7 (8-16) L 01/17/17 20:40 BUN 11 mg/dL (7-18) 01/17/17 20:40 Creatinine 0.9 mg/dL (0.7-1.3) 01/17/17 20:40 Random Glucose 96 mg/dL (74-106) 01/17/17 20:40 Calcium 9.0 mg/dL (8.5-10.1) 01/17/17 20:40 CT a/p reviewed; labs reviewed IMP: abdominal pain w/ negative imaging and ?? of pancreatitis of non surgical origin PLAN: No indication for surgical intervention/further evaluation at this time; origin of patients complaints are ??; physical exam and imaging and lab findings are not concordant; would h/e manage as before for pancreatitis of ?? origin. Luca Titus MD FACS Visit type - Case Type Case Type: ED Admission - Emergency Emergency Visit: Yes ED Registration Date: 01/18/17 Care time: The patient presented to the Emergency Department on the above date and was hospitalized for further evaluation of their emergent condition. - New patient This patient is new to me today: Yes Date on this admission: 01/18/17 - Critical Care Critical Care patient: No
[2017-01-18] MEDS ORDERED: PANTOPRAZOLE SODIUM 40 MG VIAL ONE (12:13)
[2017-01-18] MEDS ORDERED: SODIUM CHLORIDE 100 ML IVPB ONE (12:14)
--- NOTE | 2017-01-18 12:18 | PN ---
Physical Exam: SUBJECTIVE: Patient seen and examined this AM. States abdominal pain has improved. No CP, no SOB, no fevers, no chills. OBJECTIVE: Vital Signs Period Temp Pulse Resp BP Sys/Rao Pulse Ox Last 24 Hr 97.5 F 58 18-18 129/65 97 GEN: AAOx3, Mild distress only on abdominal palpation HNT: PERRLA, EOMi, No cervical LAD CV: S1, S2, RRR, no MRG LUNG: CTABL ABD: TTP in epigastric and RLQ, +Psoas sign, +Obturator sign, no rebound, neg Rovsing Sign MSK: No edema, no erythema NEURO: Cranial nerves 2-12 intact, no sensory or musculoskeletal deficits, MSK 5 /5, reflexes 2+ Laboratory Results - last 24 hr 01/18/17 01/18/17 01/18/17 06:40 06:40 06:40 WBC 9.2 RBC 4.38 Hgb 13.2 Hct 38.6 MCV 88.1 MCH 30.0 MCHC 34.1 RDW 14.4 Plt Count 190 MPV 8.4 Phosphorus 2.6 Magnesium 2.0 Triglycerides 157 Cholesterol 187 Total LDL Cholesterol 125 H HDL Cholesterol 36 L Alcohol, Quantitative < 5.0 01/18/17 06:40 WBC RBC Hgb Hct MCV MCH MCHC RDW Plt Count MPV Phosphorus Cancelled Magnesium Cancelled Triglycerides Cholesterol Total LDL Cholesterol HDL Cholesterol Alcohol, Quantitative Active Medications Generic Name Dose Route Start Last Admin Trade Name Freq PRN Reason Stop Dose Admin Lactated Ringer's 1,000 mls @ 150 mls/hr 01/18/17 05:30 Lactated Ringers Solution IV ASDIR [facility] Pantoprazole Sodium 40 mg/ 100 mls @ 200 mls/hr 01/18/17 10:45 Sodium Chloride IVPB BID MARS Morphine Sulfate 2 mg 01/18/17 03:29 Morphine Injection - IVPUSH Q2H PRN PAIN ASSESSMENT/PLAN: 37yo M with no significant PMH, S/P cholecystectomy 2 yrs ago, presents c/o abdominal pain with elevated lipase/amylase, admitted to Observation for acute mild pancreatitis. # Suspected Pancreatitis - Pt has epigastric pain, elevated lipase, likely pancreatitis - Normal Ca, TG, no trauma, no new meds - Could be related to alcohol, pt has fatty liver on CT, pt denies drinking - Morphine 1mg IV Q2 for pain - LR 150mL/hr - GI saw patient stated RLQ pain is of unclear etiology, try transition to clears, d/u with [facility] Dr. Aguilar ) # R/o Appendicitis - Pt has RLQ pain, +Psoas and +Obturator signs, CT shows no appendicitis - Surgery states no intervention # Leukocytosis - resolved - Likely reactive # Elevated LDL - Consider starting statin # FEN - Fluids: LR at 150cc/hr - Electrolytes: No abnormalities - Nutrition: Clears # Prophylaxis - DVT: B/L SCDs - GI: IV Protonix 40mg BID # Dispo - Surgery states no intervention - GI to followup on reccs - Likely d/c within 1-2 days if pain improves
[2017-01-18] MEDS ORDERED: PT OWN MED DRAWER 7, Y5N ONE ×2 (14:29→18:41)
--- NOTE | 2017-01-18 14:51 | EKG ---
Test Reason : Blood Pressure : / mmHG Vent. Rate : 052 BPM Atrial Rate : 052 BPM P-R Int : 168 ms QRS Dur : 094 ms QT Int : 444 ms P-R-T Axes : 050 -03 009 degrees QTc Int : 412 ms SINUS BRADYCARDIA POSSIBLE LEFT ATRIAL ENLARGEMENT INCOMPLETE RIGHT BUNDLE BRANCH BLOCK BORDERLINE ECG NO PREVIOUS ECGS AVAILABLE Confirmed by GERARDO VAUGHN MD ([id number]) on 01/18/2017 2:50:45 PM Referred By: Confirmed By:GERARDO VAUGHN MD
[2017-01-18 15:15] VITALS: PULSE 61
--- NOTE | 2017-01-18 15:31 | PN ---
Teaching Attending Note Name of Resident: Alicia Chapman ATTENDING PHYSICIAN STATEMENT I saw and evaluated the patient. I reviewed the resident's note and discussed the case with the resident. I agree with the resident's findings and plan as documented. SUBJECTIVE: 37M presenting with RLQ pain starting this past sunday. Pain persisted and had episode of lightheadedness/diaphoresis. took him to ER No fevers, nausea, vomiting, food fear. No change in bowel habits. No diarrhea. Occasional blood on toilet paper. ? h/o pancreatitis in past. Had cholecystectomy as well OBJECTIVE: On exam: Afebrile Anicteric Hrt: RRR Lungs: CTA b/l Abd: Sft, + BS, trochar scars, + TTP RLQ Rectal exam: no external lesions, no masses, guaiac negative stool On Labs: elevated amylase/lipase, leukocytosis (improved) On imaging: CT scan abdomen and pelvis reviewed W/ Dr. Stephens: no acute pathology. Focused in RUQ: no acute pathology ASSESSMENT RLQ of unclear etiology. Location of pain. No findings on CT scan suggestive of appendicitis however pain persists Pain picture does not fit presentation of acute pancreatitis. Amylase / lipase levels do not meet criteria for acute pancreatitis, no upper abdominal pain on exam and no radiographic evidence of pancreatitis PLAN: Clear liquids If persistent RLQ pain would have surgery reevaluate and consider repeat imaging Can follow-up as outpatient w/ [facility] Dr. Aguilar ([phone]) D/C'd BID PPI Advised avoidance of regular NSAID use
[2017-01-18 18:15] VITALS: BP 140/81; TEMP 97.2
--- NOTE | 2017-01-18 18:22 | PN ---
Teaching Attending Note Name of Resident: Naya Gupta ATTENDING PHYSICIAN STATEMENT I saw and evaluated the patient. I reviewed the resident's note and discussed the case with the resident. I agree with the resident's findings and plan as documented. SUBJECTIVE: Patient is feeling better. OBJECTIVE: Vital Signs Temperature 97.2 F L 01/18/17 18:00 Pulse Rate 61 01/18/17 18:00 Respiratory Rate 20 01/18/17 18:00 Blood Pressure 140/81 01/18/17 18:00 O2 Sat by Pulse Oximetry (%) 97 01/18/17 11:47 CBCD WBC 9.2 K/mm3 (4.0-10.0) 01/18/17 06:40 RBC 4.38 M/mm3 (4.00-5.60) 01/18/17 06:40 Hgb 13.2 GM/dL (11.7-16.9) 01/18/17 06:40 Hct 38.6 % (35.4-49) 01/18/17 06:40 MCV 88.1 fl (80-96) 01/18/17 06:40 MCHC 34.1 g/dl (32.0-35.9) 01/18/17 06:40 RDW 14.4 % (11.9-15.9) 01/18/17 06:40 Plt Count 190 K/MM3 (134-434) 01/18/17 06:40 MPV 8.4 fl (7.5-11.1) 01/18/17 06:40 CMP Sodium 139 mmol/L (136-145) 01/17/17 20:40 Potassium 4.0 mmol/L (3.5-5.1) 01/17/17 20:40 Chloride 104 mmol/L (98-107) 01/17/17 20:40 Carbon Dioxide 28 mmol/L (21-32) 01/17/17 20:40 Anion Gap 7 (8-16) L 01/17/17 20:40 BUN 11 mg/dL (7-18) 01/17/17 20:40 Creatinine 0.9 mg/dL (0.7-1.3) 01/17/17 20:40 Creat Clearance w eGFR > 60 (>60) 01/17/17 20:40 Random Glucose 96 mg/dL (74-106) 01/17/17 20:40 Calcium 9.0 mg/dL (8.5-10.1) 01/17/17 20:40 Total Bilirubin 0.5 mg/dL (0.2-1.0) D 01/17/17 20:40 AST 31 U/L (15-37) 01/17/17 20:40 ALT 39 U/L (12-78) 01/17/17 20:40 Alkaline Phosphatase 60 U/L (45-117) 01/17/17 20:40 Total Protein 7.1 g/dl (6.4-8.2) 01/17/17 20:40 Albumin 3.8 g/dl (3.4-5.0) 01/17/17 20:40 Current Medications Generic Name Dose Route Start Last Admin Trade Name Freq PRN Reason Stop Dose Admin Lactated Ringer's 1,000 mls @ 150 mls/hr 01/18/17 05:30 01/18/17 12:27 Lactated Ringers Solution IV 150 mls/hr ASDIR MARS Administration Morphine Sulfate 2 mg 01/18/17 03:29 Morphine Injection - IVPUSH Q2H PRN PAIN Home Medications Medication Instructions Recorded NK [No Known Home Medication] 10/09/16 PE: per resident ASSESSMENT AND PLAN: 37yo M with no significant PMH, S/P cholecystectomy 2 yrs ago, presents c/o abdominal pain with elevated lipase/amylase, admitted to Observation for acute mild pancreatitis. # Acute Pancreatitis with elevated Lipase and Amylase IVF ,continue npo for now , will advance in am, pain medication # Acute Leukocytosis - resolved # Prophylaxis DVT: B/L SCDs - GI: IV Protonix 40mg BID
--- NOTE | 2017-01-18 18:23 | DS ---
Physical Exam: SUBJECTIVE: Patient seen and examined this AM. States abdominal pain has improved. No CP, no SOB, no fevers, no chills. OBJECTIVE: Vital Signs Period Temp Pulse Resp BP Sys/Rao Pulse Ox Last 24 Hr 97.5 F-98.8 F 58-61 16-18 129-133/65-65 97-97 PHYSICAL EXAM GEN: AAOx3, Mild distress only on abdominal palpation HNT: PERRLA, EOMi, No cervical LAD CV: S1, S2, RRR, no MRG LUNG: CTABL ABD: TTP in epigastric and RLQ, +Psoas sign, +Obturator sign, no rebound, neg Rovsing Sign MSK: No edema, no erythema NEURO: Cranial nerves 2-12 intact, no sensory or musculoskeletal deficits, MSK 5 /5, reflexes 2+ LABS Laboratory Last Values WBC 9.2 K/mm3 (4.0-10.0) 01/18/17 06:40 RBC 4.38 M/mm3 (4.00-5.60) 01/18/17 06:40 Hgb 13.2 GM/dL (11.7-16.9) 01/18/17 06:40 Hct 38.6 % (35.4-49) 01/18/17 06:40 MCV 88.1 fl (80-96) 01/18/17 06:40 MCH 30.0 pg (25.7-33.7) 01/18/17 06:40 MCHC 34.1 g/dl (32.0-35.9) 01/18/17 06:40 RDW 14.4 % (11.9-15.9) 01/18/17 06:40 Plt Count 190 K/MM3 (134-434) 01/18/17 06:40 MPV 8.4 fl (7.5-11.1) 01/18/17 06:40 Neutrophils % 69.2 % (42.8-82.8) D 01/17/17 20:40 Lymphocytes % 21.4 % (8-40) D 01/17/17 20:40 Monocytes % 7.0 % (3.8-10.2) 01/17/17 20:40 Eosinophils % 1.8 % (0-4.5) 01/17/17 20:40 Basophils % 0.6 % (0-2.0) 01/17/17 20:40 Sodium 139 mmol/L (136-145) 01/17/17 20:40 Potassium 4.0 mmol/L (3.5-5.1) 01/17/17 20:40 Chloride 104 mmol/L (98-107) 01/17/17 20:40 Carbon Dioxide 28 mmol/L (21-32) 01/17/17 20:40 Anion Gap 7 (8-16) L 01/17/17 20:40 BUN 11 mg/dL (7-18) 01/17/17 20:40 Creatinine 0.9 mg/dL (0.7-1.3) 01/17/17 20:40 Creat Clearance w eGFR > 60 (>60) 01/17/17 20:40 Random Glucose 96 mg/dL (74-106) 01/17/17 20:40 Calcium 9.0 mg/dL (8.5-10.1) 01/17/17 20:40 Phosphorus 2.6 mg/dL (2.5-4.9) 01/18/17 06:40 Magnesium 2.0 mg/dL (1.8-2.4) 01/18/17 06:40 Total Bilirubin 0.5 mg/dL (0.2-1.0) D 01/17/17 20:40 AST 31 U/L (15-37) 01/17/17 20:40 ALT 39 U/L (12-78) 01/17/17 20:40 Alkaline Phosphatase 60 U/L (45-117) 01/17/17 20:40 Total Protein 7.1 g/dl (6.4-8.2) 01/17/17 20:40 Albumin 3.8 g/dl (3.4-5.0) 01/17/17 20:40 Triglycerides 157 mg/dL (35-160) 01/18/17 06:40 Cholesterol 187 mg/dL (50-200) 01/18/17 06:40 Total LDL Cholesterol 125 mg/dL (5-100) H 01/18/17 06:40 HDL Cholesterol 36 mg/dL (40-60) L 01/18/17 06:40 Total Amylase 239 U/L (25-115) H 01/17/17 20:40 Lipase 921 U/L (73-393) H 01/17/17 20:40 Urine Color Lt. yellow 01/17/17 21:00 Urine Appearance Sl cloudy 01/17/17 21:00 Urine pH 6.0 (5.0-8.0) 01/17/17 21:00 Ur Specific Rembrandt >= 1.030 (1.005-1.025) H 01/17/17 21:00 Urine Protein 1+ (NEGATIVE) H 01/17/17 21:00 Urine Glucose (UA) Negative (NEGATIVE) 01/17/17 21:00 Urine Ketones Negative (NEGATIVE) 01/17/17 21:00 Urine Blood Negative (NEGATIVE) 01/17/17 21:00 Urine Nitrite Negative (NEGATIVE) 01/17/17 21:00 Urine Bilirubin Negative (NEGATIVE) 01/17/17 21:00 Urine Urobilinogen 0.2 mg/dL (0.2-1.0) 01/17/17 21:00 Ur Leukocyte Esterase Negative (NEGATIVE) 01/17/17 21:00 Urine RBC 2 /hpf (0-3) 01/17/17 21:00 Urine WBC 2 /hpf (3-5) 01/17/17 21:00 Ur Epithelial Cells Rare /hpf (FEW) 01/17/17 21:00 Urine Mucus Few 01/17/17 21:00 Alcohol, Quantitative < 5.0 mg/dl (0-5) 01/18/17 06:40 HOSPITAL COURSE: Date of Admission:01/18/17 Date of Discharge: 01/18/17 37yo M with no significant PMH, S/P cholecystectomy 2 yrs ago, presents c/o abdominal pain with elevated lipase/amylase, admitted to Observation for acute mild pancreatitis. # Suspected Pancreatitis - The patient had RLQ pain that radiated to his epigastrium. The patient's lipase was not >3x above the upper limit of normal, and CT did not show any significant fat stranding. The patient initially had +Psoas and +Obturator signs on exam, but CT was negative. The patient received one dose of Tordol in the ER but did not take any of his scheduled Morphine. He was given an LR bolus and started on a drip. Gastroenterology saw the patient and recommended followup with [facility] Dr. Aguilar ). The patient was not on any home medications, and was not discharged on any medications. Notice of AMA: The patient decided to leave against medical advice. I explained to the patient that leaving AMA is dangerous and can lead to worsening of condition, permanent disability, and even . I used lay terminology and answered all questions. The patient was fully informed of all his options and it is clear to me that he understands the benefits of continued hospital stay and the risks of leaving AMA. He has the capacity to make his own decision and agrees to followup with the gastroenterologists. He agrees to return to the ER if his symptoms worsen Minutes to complete discharge: 55 <Naya Gupta - Last Filed: 01/18/17 18:24> Physical Exam: SUBJECTIVE: Patient seen and examined <Petey Onofre - Last Filed: 01/22/17 16:40> Discharge Summary Reason For Visit: PANCREATITIS Current Active Problems Abdominal pain (Acute) Pancreatitis (Acute) - Home Medications Comprehensive Discharge Medication List: Ambulatory Orders NK [No Known Home Medication] 10/09/16 <Naya Gupta - Last Filed: 01/18/17 18:24> - Home Medications Comprehensive Discharge Medication List: Ambulatory Orders NK [No Known Home Medication] 10/09/16 <Petey Onofre - Last Filed: 01/22/17 16:40> Condition: Improved - Instructions Diet, Activity, Other Instructions: - Avoid regular use of NSAID - Avoid alcohol - Avoid greasy foods FOLLOWUPS - Followup with [facility] Dr. Mcclendon et samuel ) If you experience any serious symptoms, please come back to the ER Referrals: Latrell Mcclendon MD [Staff Physician] - 1 Week Disposition: AGAINST MEDICAL ADVICE This patient is new to me today: No Emergency Visit: Yes ED Registration Date: 01/18/17 Care time: The patient presented to the Emergency Department on the above date and was hospitalized for further evaluation of their emergent condition. Critical Care patient: No - Discharge Referral Referred to [facility] No <Petey Oonfre - Last Filed: 01/22/17 16:40>
== END 2017-01-18 18:39 | disposition left against medical advice (07) ==
LOC: JER 19:23 → JERBED 01-18 02:37 → UNDOADMOB 01-18 02:45 → JERBED 01-18 02:45 → J5S 01-18 03:57
PROVIDERS: ADMIT Internal Medicine; ATTEND Internal Medicine
PROC: 3E0333Z Introduction of Anti-inflammatory into Peripheral Vein, Percutaneous Approach (ICD-10-PCS; principal; 2017-01-18)
PROC: 3E033GC Introduction of Other Therapeutic Substance into Peripheral Vein, Percutaneous Approach (ICD-10-PCS; 2017-01-18)
DX: K85.90 Acute pancreatitis without necrosis or infection, unspecified (principal); D72.829 Elevated white blood cell count, unspecified; R10.31 Right lower quadrant pain; R10.13 Epigastric pain; E78.00 Pure hypercholesterolemia, unspecified; R74.8 Abnormal levels of other serum enzymes; Z88.0 Allergy status to penicillin; Z87.891 Personal history of nicotine dependence; Z90.49 Acquired absence of other specified parts of digestive tract; Z87.19 Personal history of other diseases of the digestive system
CPT/HCPCS: 36415; 71010-TC; 74177-TC; 80053; 80061; 80307; 81003; 81015; 82150; 83690; 83721; 83735; 84100; 85025; 85027; 93005; 93010; 99285-25; G0378

== ENCOUNTER 2017-12-04 02:18 | Emergency (ER) | payer OTHER ==
[2017-12-04] MEDS ORDERED: KETOROLAC TROMETHAMINE 15 MG/ML VIAL IVPUSH ONE (02:21)
[2017-12-04 02:25] VITALS: BP 150/92; PULSE 68; TEMP 98.7; BMI 31.5
--- NOTE | 2017-12-04 02:28 | PDOC ---
History of Present Illness - General Stated Complaint: FLANK PAIN - History of Present Illness Initial Comments: 37 year old male with PMH of cholecystitis presenting with sudden onset of left flank pain radiating to the groin 20 minutes prior to arrival. States he was sleeping and was suddenly woken up out of bed with this pain. He feels as if it is radiating down the left side of his groin. Denies similar symptoms in the past and denies current urinary symptoms, fever, chills, SOB, nausea, vomiting, diarrhea, or other symptoms. 12/04/17 02:23 Past History - Past Medical History Allergies/Adverse Reactions: Allergies Allergy/AdvReac Type Severity Reaction Status Date / Time Penicillins Allergy Unknown Itching Verified 12/04/17 02:25 Home Medications: Ambulatory Orders NK [No Known Home Medication] 10/09/16 Anemia: No Asthma: No Cancer: No Cardiac Disorders: No CVA: No COPD: No CHF: No Dementia: No Diabetes: No GI Disorders: No Disorders: No HTN: No Hypercholesterolemia: No Liver Disease: No Seizures: No Thyroid Disease: No - Surgical History Abdominal Surgery: No Appendectomy: No Cardiac Surgery: No Cholecystectomy: Yes Lung Surgery: No Neurologic Surgery: No Orthopedic Surgery: Yes (RIGHT SHOULDER SX 2010,) - Suicide/Smoking/Psychosocial Hx Smoking History: Former smoker Have you smoked in the past 12 months: No If you are a former smoker, when did you quit?: 15 years ago Hx Alcohol Use: No Drug/Substance Use Hx: No Substance Use Type: None Hx Substance Use Treatment: No Review of Systems - Review of Systems Constitutional: No: Chills, Diaphoresis, Fever HEENTM: No: Eye Pain, Blurred Vision Respiratory: No: Shortness of Breath, Wheezing Cardiac (ROS): No: Chest Pain, Irregular Heart Rate ABD/GI: No: Nausea, Vomiting : No: Dysuria, Discharge, Frequency Musculoskeletal: No: Back Pain, Joint Pain, Joint Swelling Integumentary: No: Bruising, Lesions, Lumps Neurological: No: Headache, Numbness, Paresthesia Psychiatric: No: Anxiety, Depression Hematologic/Lymphatic: No: Anemia, Blood Clots, Easy Bleeding *Physical Exam - Physical Exam General Appearance: Yes: Nourished, Appropriately Dressed, Apparent Distress, Moderate Distress HEENT: positive: EOMI, TONY, Normal ENT Inspection, Normal Voice Neck: positive: Trachea midline, Normal Thyroid, Supple. negative: Tender, Rigid Respiratory/Chest: positive: Lungs Clear, Normal Breath Sounds. negative: Chest Tender, Respiratory Distress, Accessory Muscle Use Cardiovascular: positive: Regular Rhythm, Regular Rate Gastrointestinal/Abdominal: positive: Normal Bowel Sounds, Flat, Soft. negative : Tender Musculoskeletal: positive: Normal Inspection. negative: CVA Tenderness Extremity: positive: Normal Capillary Refill, Normal Inspection, Normal Range of Motion. 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 This was most concerning for nephrolithiasis which was corroborated on CBC, UA, and renal CT demonstrating 2mm stone at left UVJ. Labs WNL and not demonstrating MANAN. Pain better after toradol. Will DC with ibuprofen use instructions and uro follow up as well as return precautions. 12/04/17 04:31 *DC/Admit/Observation/Transfer Diagnosis at time of Disposition: Nephrolithiasis - Discharge Dispostion Disposition: HOME Condition at time of disposition: Improved Decision to Admit order: No - Referrals Referrals: Ronni Crespo MD [Staff Physician] - - Patient Instructions Printed Discharge Instructions: DI for Kidney Stones Additional Instructions: Please drink plenty of fluid as your stone might have passed or will pass soon. You may have some more pain for which you should take ibuprofen at home. Please follow up with the urologist as indicated on your discharge forms. Please return to the ED if you have new or worsening symptoms. - Post Discharge Activity
[2017-12-04] MEDS ORDERED: KETOROLAC TROMETHAMINE 30 MG/1 ML VIAL IM ONE (02:30)
[2017-12-04] MEDS ORDERED: KETOROLAC TROMETHAMINE 30 MG/1 ML VIAL ONE (02:31)
--- NOTE | 2017-12-04 03:06 | PDOC ---
Attending Attestation - Resident Resident Name: Carey Tellez - ED Attending Attestation I have performed the following: I have examined & evaluated the patient, The case was reviewed & discussed with the resident, I agree w/resident's findings & plan, Exceptions are as noted <Simon Perez - Last Filed: 12/04/17 03:05> - HPI HPI: 12/04/17 03:06 The patient is a 37 year old male with past medical history of cholecystitis presents to the emergency department with flank pain. Patient presents with a sudden onset of L. sided flank pain that woke the patient up from sleep. 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 Denies fever, chills, cough or a headache. Denies chest pain or shortness of breath. Denies back pain. Denies nausea, vomiting, diarrhea or constipation. Denies dysuria, hematuria, frequency or urgency to urinate. Allergies: Penicillins Social history: Patient denies Surgical history: cholecystectomy 2 yrs ago and Right shoulder surgery x 2. PCP: Rebecca Deshpande MD - Physicial Exam PE: 12/04/17 06:27 General Appearance: Yes: Nourished, Appropriately Dressed, Apparent Distress, Moderate Distress HEENT: positive: EOMI, TONY, Normal ENT Inspection, Normal Voice Neck: positive: Trachea midline, Normal Thyroid, Supple. negative: Tender, Rigid Respiratory/Chest: positive: Lungs Clear, Normal Breath Sounds. negative: Chest Tender, Respiratory Distress, Accessory Muscle Use Cardiovascular: positive: Regular Rhythm, Regular Rate Gastrointestinal/Abdominal: positive: Normal Bowel Sounds, Flat, Soft. negative : Tender Musculoskeletal: positive: Normal Inspection. negative: CVA Tenderness Extremity: positive: Normal Capillary Refill, Normal Inspection, Normal Range of Motion. 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 12/04/17 03:55 Randell Rob MD 12/04/2017 03:21 EST EXAM: CT abdomen and pelvis without contrast HISTORY: Kidney stone COMPARISON: None. FINDINGS: Lung bases are clear. The visualized cardiac chambers are normal size and configuration. Status post cholecystectomy without biliary duct dilation. There is mild left hydronephrosis and minimal perinephric inflammation secondary to a 2 mm distal left UVJ stone. No other stones identified. Normal unenhanced liver, pancreas, spleen, adrenal glands and right kidney. The stomach and abdominal small and large bowel are normal. There is no aortic aneurysm. There is no significant retroperitoneal lymphadenopathy. The pelvic small and large bowel are normal. The appendix is normal. The urinary bladder is not inflamed. The prostate gland is normal. No pelvic free fluid is identified. There is no significant pelvic lymphadenopathy. IMPRESSION: Mild left hydronephrosis and minimal perinephric inflammation secondary to a 2 mm distal left UVJ stone. <Isabella Feliciano - Last Filed: 12/04/17 06:27>
[2017-12-04 03:35] LABS: BASO % 0.7 % (0-2.0); EOS % 2.6 % (0-4.5); HEMATOCRIT 41.8 % (35.4-49); HEMOGLOBIN 13.9 GM/dL (11.7-16.9); LYMPH % 23.7 % (8-40); MCHC 33.2 g/dl (32.0-35.9); MEAN CELL VOLUME 87.2 fl (80-96); MEAN PLT VOLUME 7.8 fl (7.5-11.1); MONO % 5.8 % (3.8-10.2); NEUT % 67.2 % (42.8-82.8); PLATELET COUNT 201 K/MM3 (134-434); RBC 4.79 M/mm3 (4.00-5.60); RDW 14.3 % (11.9-15.9); WHITE BLOOD COUNT 12.5 K/mm3 (4.0-10.0)
[2017-12-04 03:36] LABS: URINE APPEARANCE CLEAR; URINE BILIRUBIN NEGATIVE (<2.0 mg/dL); URINE COLOR YELLOW; URINE GLUCOSE (UA) NEGATIVE (NEGATIVE); URINE KETONE NEGATIVE (NEGATIVE); URINE LEUK ESTERASE NEGATIVE (NEGATIVE); URINE NITRITE NEGATIVE (NEGATIVE)
[2017-12-04] MEDS ORDERED: SODIUM CHLORIDE 0.9% 500 ML INFUS.BAG IV ONE (03:38)
[2017-12-04 03:46] LABS: URINE PROTEIN 2+ (NEGATIVE)
[2017-12-04 04:00] LABS: ALBUMIN 3.8 g/dl (3.4-5.0); ALK PHOS 60 U/L (45-117); ANION GAP 6 (8-16); BILIRUBIN,TOTAL 0.4 mg/dL (0.2-1.0); BLOOD UREA NITROGEN 13 mg/dL (7-18); CALCIUM 8.4 mg/dL (8.5-10.1); CHLORIDE 105 mmol/L (98-107); CO2 29 mmol/L (21-32); GLUCOSE,RANDOM 111 mg/dL (74-106); POTASSIUM 3.4 mmol/L (3.5-5.1); SGOT/AST 30 U/L (15-37); SGPT/ALT 27 U/L (12-78); SODIUM 140 mmol/L (136-145); TOT PROT 7.3 g/dl (6.4-8.2)
[2017-12-04 04:14] LABS: INR 1.02 (0.82-1.09); PROTHROMBIN TIME (PATIENT) 11.5 SEC (9.7-13.0)
[2017-12-04 04:24] LABS: URINE MUCUS FEW
== END 2017-12-04 04:55 | disposition home or self-care (01) ==
LOC: JER 02:18
PROC: 3E0233Z Introduction of Anti-inflammatory into Muscle, Percutaneous Approach (ICD-10-PCS; principal; 2017-12-04)
DX: N13.2 Hydronephrosis with renal and ureteral calculous obstruction (principal); Z87.19 Personal history of other diseases of the digestive system
CPT/HCPCS: 36415; 74176; 80053; 81003; 81015; 85025; 85610; 96372; 99284-25

== ENCOUNTER 2019-01-21 08:53 | Emergency (ER) | payer OTHER ==
[2019-01-21 09:00] VITALS: BP 114/68; PULSE 77; TEMP 98; BMI 30.8
--- NOTE | 2019-01-21 09:04 | PDOC ---
History of Present Illness - General Chief Complaint: Pain Stated Complaint: FALL,LT SIDED PAIN Time Seen by Provider: 01/21/19 09:02 History Source: Patient Exam Limitations: No Limitations Past History - Travel Traveled outside of the country in the last 30 days: No Close contact w/someone who was outside of country & ill: No - Past Medical History Allergies/Adverse Reactions: Allergies Allergy/AdvReac Type Severity Reaction Status Date / Time Penicillins Allergy Unknown Itching Verified 01/21/19 09:00 Home Medications: Ambulatory Orders Cyclobenzaprine HCl [Flexeril -] 10 mg PO HS #10 tablet 01/21/19 Ibuprofen 800 mg PO TID #30 tablet 01/21/19 Anemia: No Asthma: No Cancer: No Cardiac Disorders: No CVA: No COPD: No CHF: No Dementia: No Diabetes: No GI Disorders: No Disorders: No HTN: No Hypercholesterolemia: No Liver Disease: No Seizures: No Thyroid Disease: No - Surgical History Abdominal Surgery: No Appendectomy: No Cardiac Surgery: No Cholecystectomy: Yes Lung Surgery: No Neurologic Surgery: No Orthopedic Surgery: Yes (RIGHT SHOULDER SX 2011,) - Suicide/Smoking/Psychosocial Hx Smoking History: Never smoked Have you smoked in the past 12 months: No If you are a former smoker, when did you quit?: 15 years ago Hx Alcohol Use: No Drug/Substance Use Hx: No Substance Use Type: None Hx Substance Use Treatment: No Review of Systems - Review of Systems Able to Perform ROS?: Yes Comments:: 01/21/19 09:03 CONSTITUTIONAL: Absent: fever, chills, diaphoresis, generalized weakness, malaise, loss of appetite CARDIOVASCULAR: Absent: chest pain, loss of consciousness, palpitations, irregular heart rate, peripheral edema RESPIRATORY: Absent: cough, shortness of breath, dyspnea with exertion, orthopnea, wheezing, stridor, hemoptysi MUSCULOSKELETAL: Present: L rib pain Absent: myalgia, arthralgia, joint swelling SKIN: Absent: rash, itching, pallor NEUROLOGIC: Absent: headache, focal weakness or paresthesias, dizziness, unsteady gait, seizure, mental status changes, bladder or bowel incontinence Is the patient limited Iraqi proficient: No *Physical Exam - Vital Signs Last Vital Signs Temp Pulse Resp BP Pulse Ox 98 F 77 18 114/68 99 01/21/19 08:58 01/21/19 08:58 08/20/19 08:58 01/21/19 08:58 01/21/19 08:58 - Physical Exam Comments: 01/21/19 09:04 GENERAL: Well developed, well nourished. Awake and alert. No acute distress. HEENT: Normocephalic, atraumatic. PERRLA, EOMI. No conjunctival pallor. Sclera are non- icteric. Moist mucous membranes. Oropharynx is clear. NECK: Supple. Full ROM. No JVD. Carotid pulses 2+ and symmetric, without bruits. No thyromegaly. No lymphadenopathy. CARDIOVASCULAR: Regular rate and rhythm. No murmurs, rubs, or gallops. Distal pulses are 2+ and symmetric. PULMONARY: No evidence of respiratory distress. Lungs clear to auscultation bilaterally. No wheezing, rales or rhonchi. MUSCULOSKELETAL TTP of the chest wall along the L 5th and 6th ribs. Normal range of motion at all joints. No bony deformities. No CVA tenderness. SKIN: Warm and dry. Normal capillary refill. No rashes. No jaundice. NEUROLOGICAL: Alert, awake, appropriate. Cranial nerves 2-12 intact. No deficits to light touch and temperature in face, upper extremities and lower extremities. No motor deficits in the in face, upper extremities and lower extremities. Normoreflexic in the upper and lower extremities. Normal speech. Toes are down- going bilaterally. Gait is normal without ataxia. Medical Decision Making - Medical Decision Making 01/21/19 09:04 The patient is a 39-year-old male who presents to the ER for left side pain for 2 weeks. The patient states he fell playing basketball, landing on the left side. Since then he states that the pain is worse with movement and deep breaths. Denies fevers ,chills, shortness of breath, difficulty breathing, chest pain, n/v/d. A/P: rib contusion On exam patient is tender to the left fifth and sixth ribs. (+) full range of motion. Lungs sounds are clear to auscultation bilaterally with good aeration to the bases. No concern for pneumo at this time X-rays of the ribs were obtained. No fractures identified, no pneumothorax Discharge home with supportive therapy and incentive spirometry. I discussed the physical exam findings, ancillary test results and final diagnoses with the patient. I answered all of the patient's questions. The patient was satisfied with the care received and felt comfortable with the discharge plan and treatment plan. The Patient agrees to follow up with the primary care physician/specialist within 24-72 hours. Return precautions were given. *DC/Admit/Observation/Transfer Diagnosis at time of Disposition: Rib pain on left side - Discharge Dispostion Disposition: HOME Condition at time of disposition: Stable Decision to Admit order: No - Referrals Referrals: Abhinav Edouard MD [Staff Physician] - - Patient Instructions Printed Discharge Instructions: DI for Rib Contusion Additional Instructions: You were evaluated for your rib pain today. Your x-rays are negative for fractures. You most likely have a bone bruise/muscle spasm from falling. Please take the ibuprofen 800 mg every 8 hours for 1 week. Take the Flexeril at night before bed. Do not drink or drive after taking this medication as it may make you drowsy. Apply warm compresses to the area. Use the incentive spirometer every hour to help with her pain and breathing Follow-up with your primary care doctor this week. Return to the ER for any new or worsening symptoms. - Post Discharge Activity Forms/Work/School Notes: Back to Work
[2019-01-21] MEDS ORDERED: KETOROLAC TROMETHAMINE 60 MG/2 ML VIAL IM ONE (09:47)
[2019-01-21] MEDS ORDERED: LIDOCAINE 5% TOPICAL PATCH TP ONE (09:47)
[2019-01-21] MEDS ORDERED: LIDOCAINE 5% TOPICAL PATCH ONE (09:49)
[2019-01-21] MEDS ORDERED: KETOROLAC TROMETHAMINE 60 MG/2 ML VIAL ONE (09:49)
[2019-01-21] MEDS ORDERED: LIDOCAINE PATCH REMOVAL MC SCH (22:00)
== END 2019-01-21 10:06 | disposition home or self-care (01) ==
LOC: JERFT 08:53
PROC: 3E0233Z Introduction of Anti-inflammatory into Muscle, Percutaneous Approach (ICD-10-PCS; principal; 2019-01-21)
DX: R07.81 Pleurodynia (principal)
CPT/HCPCS: 71101-TC-LT-FY; 99281-25